=== PATIENT | female | born 1940 | race Caucasian/White ===

== ENCOUNTER → 2022-01-27 | Day surgery (SDC) | payer OTHER ==
[~2022-01-27] VITALS: Ht 150 cm; Wt 73.0 kg
[~2022-01-27] MED LIST: CHILDREN'S ASPI81 MG PO; CO Q-10200 MG PO; FEOSOL325 MG PO; IBUPROFEN800 M1 PO; LEVOMEFOLATE PO; MELATONIN5 M2 PO; ONDANSETRON HCL4 MG PO; OXYCODONE-ACET1 EAC1 PO; ROSUVASTATIN CA20 MG PO; SERTRALINE HCL50 MG PO; SYMBICORT 80-10.2 GM INH; VITAMIN D3250 MCG PO; ZOFRAN8 MG PO
== END | disposition home or self-care (01) ==
LOC: FAS 13:02
DX: H26.492 Other secondary cataract, left eye (principal)